=== PATIENT | female | born 1960 | race African-American/Black ===

== ENCOUNTER 2024-12-13 18:43 | Emergency (ER) | payer MEDICARE, MEDICAID ==
[~2024-12-13] VITALS: Ht 167.6 cm; Wt 105.0 kg
[~2024-12-13 18:43] MED LIST: IRON PILL; NORCO
[2024-12-13 18:50] VITALS: TEMP 36.9; O2SAT 99
[2024-12-13] MEDS ORDERED: CYCL10TA21 MT (21:13)
[2024-12-13] MEDS ORDERED: NAPR-1176 MT (21:13)
[2024-12-13] MEDS: CYCLOBENZAPRINE 10MG TABLET PO ONE (22:12)
[2024-12-13] MEDS: KETOROLAC 30MG/ML VIAL IM ONE (22:14)
[2024-12-13 22:27] VITALS: BP 207/112; PULSE 70; RESP 16; O2SAT 97
[2024-12-13] MEDS: AMLODIPINE 10MG TABLET PO ONE (22:33)
== END 2024-12-13 22:40 | disposition home or self-care (01) ==
LOC: ER 18:43
DX: M25.561 Pain in right knee (principal); F17.210 Nicotine dependence, cigarettes, uncomplicated; I10 Essential (primary) hypertension
CPT/HCPCS: 99283; 99406; 73560; 96372; J1885; A6449